=== PATIENT | female | born 1940 | race Caucasian/White ===

== ENCOUNTER 2020-08-30 12:47 | Inpatient (IN) | payer MEDICARE ==
[~2020-08-30] VITALS: Ht 160 cm; Wt 73.8 kg
[~2020-08-30 12:47] MED LIST: ALEN70TA66 PO; LEVO75TA5 PO; LOSA1TAB25 PO; OXYB5TAB10 PO; POTA20TA91; SIMV20TA19 PO
--- NOTE | 2020-08-30 12:58 | NUR ---
PT BIB EMS FOR GENERAL WEAKNESS AND COFFEE GROUND EMESIS THAT STARTED YESTERDAY. EMS REPORTS THAT PT ALSO HAD VERY FOUL SMELLING URINE ON SCENE. PT DENIES ABD PAIN BUT EMS DID CONFIRM THAT SHE DID HAVE DARK VOMIT AT HER HOUSE. PT RESTING IN [facility]. EKG COMPLETE. BLANKET PROVIDED.
[2020-08-30] MEDS ORDERED: ONDANSETRON 2MG/ML, 2ML ONE (13:25)
[2020-08-30] MEDS ORDERED: PANTOPRAZOLE 40 MG IV IVPush ONE (13:30)
[2020-08-30] MEDS ORDERED: SODIUM CHLORIDE 0.9% 1,000ML IVBOLUS ONE (13:30)
[2020-08-30] MEDS ORDERED: SODIUM CHLORIDE 0.9% 1,000 ML IV ONE (13:30)
[2020-08-30] MEDS ORDERED: SODIUM CHLORIDE FLUSH 10ML SYR IVF ONE (13:30)
[2020-08-30 13:40] LABS: BASOPHILS % (AUTO) 1 % (0-1); EOSINOPHILS % (AUTO) 0 % (1-7); LYMPHOCYTES % (AUTO) 8 % (22-44); MEAN CORPUSCULAR HEMOGLOBIN 30.7 pg (27.0-34.8); MEAN PLATELET VOLUME 8.7 fL (7.4-10.4); MONOCYTES % (AUTO) 7 % (2-9); NEUTROPHILS % (AUTO) 85 % (42-75); PLATELET COUNT 222 x10^3/uL (130-400); RED BLOOD COUNT 3.71 x10^6/uL (3.82-5.3); RED CELL DISTRIBUTION WIDTH 17.5 % (9.6-15.2)
[2020-08-30 13:47] LABS: MD NO
--- NOTE | 2020-08-30 13:47 | NUR ---
TASK RN: PIV PLACED FROM WHICH LABS INCLUDING 1 SET OF BLOOD CULTURES DRAWN STRAIGHT CATH UA OBTAINED-WALKED TO LAB
[2020-08-30 13:51] LABS: INTERNATIONAL NORMALIZED RATIO 1.02 (0.93-1.1); PROTHROMBIN TIME 10.8 Seconds (9.6-11.5)
[2020-08-30] MEDS ORDERED: PANTOPRAZOLE 40 MG IV ONE (13:52)
[2020-08-30 13:53] LABS: ALBUMIN 2.6 g/dL (3.4-5.0); ANION GAP 6 mmol/L (5-15); CALCIUM 9.9 mg/dL (8.5-10.1); CHLORIDE 109 mmol/L (98-107)
[2020-08-30 13:56] LABS: ALANINE AMINOTRANSFERASE 13 U/L (12-78); ALKALINE PHOSPHATASE 75 U/L (45-117); BILIRUBIN,TOTAL 0.6 mg/dL (0.2-1.0); CREATININE 0.93 mg/dL (0.55-1.02); TOTAL PROTEIN 6.4 g/dL (6.4-8.2)
[2020-08-30 14:02] LABS: MICROSCOPIC INDICATED
[2020-08-30] MEDS: PANTOPRAZOLE 80 MG in SODIUM CHLORIDE 0.9% 100 ML IV SCH ×4 (14:56→22:17)
[2020-08-30] MEDS ORDERED: SODIUM CHLORIDE FLUSH 10ML SYR IVF PRN (16:00)
[2020-08-30] MEDS ORDERED: hydrALAzine 20 MG/ML, 1ML IVPush PRN (17:00)
[2020-08-30] MEDS ORDERED: DOCUSATE 100 MG CAPSULE PO PRN (17:00)
[2020-08-30] MEDS ORDERED: ONDANSETRON 2MG/ML, 2ML IVPush PRN (17:00)
[2020-08-30] MEDS ORDERED: POLYETHYLENE GLYCOL 17 GM PACKET PO PRN (17:00)
[2020-08-30] MEDS ORDERED: BISACODYL 10 MG SUPP PR PRN (17:00)
[2020-08-30] MEDS ORDERED: ONDANSETRON ODT 4 MG PO PRN (17:00)
--- NOTE | 2020-08-30 17:05 | NUR ---
REPORT GIVEN TO HAYLIE RASMUSSEN FOR ROOM [id number]
[2020-08-30] MEDS: CEFTRIAXONE PMX 1GM/50ML 50 ML IV SCH (17:18)
[2020-08-30] MEDS ORDERED: CEFTRIAXONE PMX 1GM/50ML 50 ML ONE (17:18)
[2020-08-30 18:33] VITALS: BP 90/66
[2020-08-30] MEDS: NS + 20MEQ KCL 1,000 ML IV SCH (20:38)
[2020-08-30 20:59] VITALS: BP 90/66
[2020-08-31 01:02] VITALS: BP 107/66
[2020-08-31] MEDS: NS + 20MEQ KCL 1,000 ML IV SCH (04:21)
[2020-08-31 05:05] LABS: BASOPHILS % (AUTO) 1 % (0-1); EOSINOPHILS % (AUTO) 2 % (1-7); LYMPHOCYTES % (AUTO) 13 % (22-44); MEAN CORPUSCULAR HEMOGLOBIN 31.3 pg (27.0-34.8); MEAN PLATELET VOLUME 8.9 fL (7.4-10.4); MONOCYTES % (AUTO) 8 % (2-9); NEUTROPHILS % (AUTO) 77 % (42-75); PLATELET COUNT 167 x10^3/uL (130-400); RED BLOOD COUNT 2.84 x10^6/uL (3.82-5.3); RED CELL DISTRIBUTION WIDTH 17.6 % (9.6-15.2)
[2020-08-31 05:09] LABS: MD NO
[2020-08-31 05:15] LABS: ALANINE AMINOTRANSFERASE 6 U/L (12-78); ALBUMIN 2.1 g/dL (3.4-5.0); ANION GAP 3 mmol/L (5-15); CALCIUM 8.9 mg/dL (8.5-10.1); CHLORIDE 118 mmol/L (98-107); CREATININE 0.65 mg/dL (0.55-1.02)
[2020-08-31 05:17] LABS: ALKALINE PHOSPHATASE 52 U/L (45-117); BILIRUBIN,TOTAL 0.4 mg/dL (0.2-1.0); TOTAL PROTEIN 4.9 g/dL (6.4-8.2)
[2020-08-31 06:50] VITALS: BP 110/69
[2020-08-31] MEDS: PANTOPRAZOLE 80 MG in SODIUM CHLORIDE 0.9% 100 ML IV SCH (08:54)
[2020-08-31] MEDS ORDERED: PROPOFOL 10 MG/ML, 20ML ONE (10:52)
[2020-08-31] MEDS ORDERED: hydrALAzine 20 MG/ML, 1ML IV PRN (11:30)
[2020-08-31] MEDS ORDERED: OXYcodone 5 MG/5 ML ORAL.SOL UDC PO PRN (11:30)
[2020-08-31] MEDS ORDERED: ONDANSETRON 2MG/ML, 2ML IVPush PRN (11:30)
[2020-08-31] MEDS ORDERED: DIAZEPAM 5 MG/ML, 2ML IVPush PRN (11:30)
[2020-08-31] MEDS ORDERED: DIPHENHYDRAMINE 50 MG/ML, 1ML IVPush PRN (11:30)
[2020-08-31] MEDS ORDERED: FENTANYL PF 100 MCG/2ML IV PRN (11:30)
[2020-08-31] MEDS ORDERED: HYDROmorphone 1 MG/ML, 1ML INJ IVPush PRN (11:30)
[2020-08-31] MEDS ORDERED: EPHEDRINE 50 MG/ML, 1ML IVPush PRN (11:30)
[2020-08-31] MEDS ORDERED: ALBUTEROL SULFATE 2.5 MG/3 ML NPPB PRN (11:30)
[2020-08-31] MEDS ORDERED: MEPERIDINE/PF 25MG/0.5ML IVPush PRN (11:30)
[2020-08-31] MEDS ORDERED: PROMETHAZINE 12.5 MG SUPP PR PRN (11:30)
[2020-08-31] MEDS ORDERED: PROMETHAZINE 25 MG/ML, 1ML IVPush PRN (11:30)
[2020-08-31] MEDS ORDERED: MIDAZOLAM 1 MG/ML, 2ML IV PRN (11:30)
[2020-08-31] MEDS ORDERED: LABETALOL 5MG/ML, 20ML IV PRN (11:30)
[2020-08-31 11:51] VITALS: BP 110/68
[2020-08-31] MEDS ORDERED: LIDOCAINE 1%, 10ML ONE (12:25)
[2020-08-31] MEDS ORDERED: FENTANYL PF 100 MCG/2ML ONE (12:44)
[2020-08-31] MEDS ORDERED: MIDAZOLAM 1 MG/ML, 5ML ONE ×2 (12:44)
[2020-08-31] MEDS ORDERED: NALOXONE 1 MG/ML, 2ML ONE (12:45)
[2020-08-31] MEDS ORDERED: FLUMAZENIL 0.1 MG/1 ML, 5ML ONE (12:45)
[2020-08-31] MEDS ORDERED: VISIPAQUE 270 MG/ML, 50ML BOTTLE ONE (14:27)
[2020-08-31] MEDS: PANTOPRAZOLE 40 MG IV IVPush SCH (15:07)
[2020-08-31 15:08] VITALS: BP 90/53
[2020-08-31] MEDS: OXYBUTYNIN CHLORIDE 5 MG TABLET PO SCH (15:08)
[2020-08-31] MEDS: ACETAMINOPHEN 325 MG TABLET PO PRN ×2 (15:36→20:31)
[2020-08-31] MEDS: CEFTRIAXONE PMX 1GM/50ML 50 ML IV SCH (16:23)
[2020-08-31] MEDS: SUCRALFATE 1 GM/10 ML UDC PO SCH ×2 (16:56→20:31)
[2020-08-31] MEDS ORDERED: NS + 20MEQ KCL 1,000 ML IV SCH (17:00)
[2020-08-31 17:01] VITALS: BP 99/64
[2020-08-31 18:04] LABS: MICROSCOPIC INDICATED
[2020-08-31] MEDS ORDERED: SODIUM CHLORIDE 0.9%, 500ML IVBOLUS ONE (19:00)
[2020-08-31 20:28] VITALS: BP 98/62
[2020-08-31] MEDS: SIMVASTATIN 20 MG TABLET PO SCH (20:31)
[2020-09-01 03:11] VITALS: BP 90/53
[2020-09-01] MEDS: PANTOPRAZOLE 40 MG IV IVPush SCH ×2 (03:16→16:02)
[2020-09-01 05:31] LABS: BASOPHILS % (AUTO) 2 % (0-1); EOSINOPHILS % (AUTO) 4 % (1-7); LYMPHOCYTES % (AUTO) 20 % (22-44); MEAN CORPUSCULAR HEMOGLOBIN 31.2 pg (27.0-34.8); MEAN CORPUSCULAR HGB CONC 33.4 g/dL (32.4-35.8); MEAN PLATELET VOLUME 8.5 fL (7.4-10.4); MONOCYTES % (AUTO) 8 % (2-9); NEUTROPHILS % (AUTO) 66 % (42-75); PLATELET COUNT 151 x10^3/uL (130-400); RED BLOOD COUNT 2.34 x10^6/uL (3.82-5.3); RED CELL DISTRIBUTION WIDTH 18.2 % (9.6-15.2)
[2020-09-01 05:42] LABS: ANION GAP 3 mmol/L (5-15); CALCIUM 8.4 mg/dL (8.5-10.1); CHLORIDE 118 mmol/L (98-107)
[2020-09-01 05:43] LABS: CREATININE 0.53 mg/dL (0.55-1.02)
[2020-09-01] MEDS: SUCRALFATE 1 GM/10 ML UDC PO SCH ×4 (05:48→20:45)
[2020-09-01] MEDS: LEVOTHYROXINE 75 MCG TABLET PO SCH (05:48)
[2020-09-01 06:10] LABS: MD SCAN
[2020-09-01 07:23] VITALS: BP 105/67
[2020-09-01] MEDS: ACETAMINOPHEN 325 MG TABLET PO PRN ×2 (08:22→20:46)
[2020-09-01] MEDS: OXYBUTYNIN CHLORIDE 5 MG TABLET PO SCH ×3 (08:37→20:45)
[2020-09-01 13:53] VITALS: BP 97/59
[2020-09-01] MEDS ORDERED: ASPI81TA45 PO (16:51)
[2020-09-01] MEDS ORDERED: POTA10CA PO (16:51)
[2020-09-01] MEDS ORDERED: CALC-112 PO (16:51)
[2020-09-01] MEDS ORDERED: LOSA1TAB25 PO (16:51)
[2020-09-01] MEDS ORDERED: MULT-662 PO (16:53)
[2020-09-01] MEDS: CEFTRIAXONE PMX 1GM/50ML 50 ML IV SCH (17:29)
[2020-09-01 20:29] VITALS: BP 132/80
[2020-09-01] MEDS: SIMVASTATIN 20 MG TABLET PO SCH (20:45)
[2020-09-02 01:29] VITALS: BP 109/69
[2020-09-02] MEDS: LEVOTHYROXINE 75 MCG TABLET PO SCH (05:56)
[2020-09-02] MEDS: PANTOPRAZOLE 40MG TABLET PO SCH ×2 (05:56→18:19)
[2020-09-02] MEDS: OXYBUTYNIN CHLORIDE 5 MG TABLET PO SCH ×4 (05:57→21:46)
[2020-09-02] MEDS: SUCRALFATE 1 GM/10 ML UDC PO SCH ×4 (05:57→21:46)
[2020-09-02 06:08] LABS: BASOPHILS % (AUTO) 3 % (0-1); EOSINOPHILS % (AUTO) 5 % (1-7); LYMPHOCYTES % (AUTO) 26 % (22-44); MEAN CORPUSCULAR HGB CONC 33.3 g/dL (32.4-35.8); MEAN PLATELET VOLUME 8.7 fL (7.4-10.4); MONOCYTES % (AUTO) 8 % (2-9); NEUTROPHILS % (AUTO) 58 % (42-75); PLATELET COUNT 141 x10^3/uL (130-400); RED BLOOD COUNT 2.45 x10^6/uL (3.82-5.3); RED CELL DISTRIBUTION WIDTH 17.9 % (9.6-15.2)
[2020-09-02 06:27] LABS: MD NO
[2020-09-02 08:35] VITALS: BP 139/75
[2020-09-02] MEDS: CALCIUM/VITAMIN D3 250-125 TABLET PO SCH (09:50)
[2020-09-02] MEDS: MULTIVITAMINS WITH IRON TABLET PO SCH (09:51)
[2020-09-02 14:18] LABS: ANION GAP 5 mmol/L (5-15); CALCIUM 8.4 mg/dL (8.5-10.1); CHLORIDE 116 mmol/L (98-107)
[2020-09-02 15:25] VITALS: BP 105/68
[2020-09-02] MEDS ORDERED: MAGNESIUM SULFATE PMX 4GM/100M 100 ML IVPB ONE (16:15)
[2020-09-02] MEDS ORDERED: HEPARIN 5,000 UNITS/ML, 1ML IV ONE (16:30)
[2020-09-02] MEDS ORDERED: HEPARIN 5,000 UNITS/ML, 1ML IV PRN (16:30)
[2020-09-02] MEDS ORDERED: HEPARIN 25,000 UNITS/250ML PMX 250 ML IV PRN (16:30)
[2020-09-02 19:42] VITALS: BP 99/63
[2020-09-02] MEDS: SIMVASTATIN 20 MG TABLET PO SCH (21:46)
[2020-09-02] MEDS: K-PHOS NEUTRAL 250MG TAB PO SCH (21:46)
[2020-09-03 00:58] VITALS: BP 103/66
[2020-09-03 05:01] LABS: BASOPHILS % (AUTO) 1 % (0-1); EOSINOPHILS % (AUTO) 4 % (1-7); LYMPHOCYTES % (AUTO) 25 % (22-44); MEAN CORPUSCULAR HEMOGLOBIN 31.4 pg (27.0-34.8); MEAN CORPUSCULAR HGB CONC 34.1 g/dL (32.4-35.8); MEAN PLATELET VOLUME 8.4 fL (7.4-10.4); MONOCYTES % (AUTO) 8 % (2-9); NEUTROPHILS % (AUTO) 63 % (42-75); PLATELET COUNT 160 x10^3/uL (130-400); RED BLOOD COUNT 2.53 x10^6/uL (3.82-5.3); RED CELL DISTRIBUTION WIDTH 17.6 % (9.6-15.2)
[2020-09-03 05:09] LABS: MD NO
[2020-09-03 05:24] LABS: ANION GAP 5 mmol/L (5-15); CALCIUM 8.4 mg/dL (8.5-10.1); CHLORIDE 113 mmol/L (98-107); CREATININE 0.68 mg/dL (0.55-1.02)
[2020-09-03] MEDS: OXYBUTYNIN CHLORIDE 5 MG TABLET PO SCH ×4 (05:28→23:15)
[2020-09-03] MEDS: PANTOPRAZOLE 40MG TABLET PO SCH ×2 (05:28→17:24)
[2020-09-03] MEDS: LEVOTHYROXINE 75 MCG TABLET PO SCH (05:28)
[2020-09-03 07:10] VITALS: BP 116/78
[2020-09-03] MEDS: SUCRALFATE 1 GM/10 ML UDC PO SCH ×4 (10:39→23:14)
[2020-09-03] MEDS: MULTIVITAMINS WITH IRON TABLET PO SCH (10:39)
[2020-09-03] MEDS: CALCIUM/VITAMIN D3 250-125 TABLET PO SCH (10:40)
[2020-09-03] MEDS: K-PHOS NEUTRAL 250MG TAB PO SCH ×2 (10:40→23:16)
[2020-09-03] MEDS: ACETAMINOPHEN 325 MG TABLET PO PRN (12:40)
[2020-09-03 14:30] VITALS: BP 115/70
[2020-09-03] MEDS ORDERED: HEPARIN 5,000 UNITS/ML, 1ML IV PRN (15:16)
[2020-09-03] MEDS ORDERED: HEPARIN 25,000 UNITS/250ML PMX 250 ML IV PRN (15:30)
[2020-09-03] MEDS: APIXABAN 5 MG TABLET PO SCH ×2 (17:25→23:14)
[2020-09-03 19:28] VITALS: BP 100/66
[2020-09-03] MEDS ORDERED: APIXABAN 5 MG TABLET PO SCH (21:00)
[2020-09-03] MEDS: SIMVASTATIN 20 MG TABLET PO SCH (23:15)
[2020-09-04 01:45] VITALS: BP 126/82
[2020-09-04] MEDS: LEVOTHYROXINE 75 MCG TABLET PO SCH (05:19)
[2020-09-04] MEDS: PANTOPRAZOLE 40MG TABLET PO SCH ×2 (05:19→21:33)
[2020-09-04] MEDS: OXYBUTYNIN CHLORIDE 5 MG TABLET PO SCH ×4 (05:19→21:33)
[2020-09-04 06:22] LABS: BASOPHILS % (AUTO) 1 % (0-1); EOSINOPHILS % (AUTO) 4 % (1-7); LYMPHOCYTES % (AUTO) 24 % (22-44); MEAN CORPUSCULAR HEMOGLOBIN 32.1 pg (27.0-34.8); MEAN CORPUSCULAR HGB CONC 34.2 g/dL (32.4-35.8); MEAN PLATELET VOLUME 8.6 fL (7.4-10.4); MONOCYTES % (AUTO) 11 % (2-9); NEUTROPHILS % (AUTO) 59 % (42-75); PLATELET COUNT 150 x10^3/uL (130-400); RED BLOOD COUNT 2.28 x10^6/uL (3.82-5.3); RED CELL DISTRIBUTION WIDTH 17.6 % (9.6-15.2)
[2020-09-04 06:25] LABS: MD NO
[2020-09-04 06:31] LABS: ANION GAP 4 mmol/L (5-15); CALCIUM 8.2 mg/dL (8.5-10.1); CHLORIDE 115 mmol/L (98-107); CREATININE 0.58 mg/dL (0.55-1.02)
[2020-09-04 07:25] VITALS: BP 115/74
[2020-09-04] MEDS ORDERED: MAGNESIUM SULFATE PMX 4GM/100M 100 ML IVPB ONE (08:00)
[2020-09-04] MEDS: SUCRALFATE 1 GM/10 ML UDC PO SCH ×4 (08:04→21:33)
[2020-09-04] MEDS: MULTIVITAMINS WITH IRON TABLET PO SCH (09:31)
[2020-09-04] MEDS: CALCIUM/VITAMIN D3 250-125 TABLET PO SCH (09:31)
[2020-09-04] MEDS: K-PHOS NEUTRAL 250MG TAB PO SCH ×2 (09:31→21:33)
[2020-09-04] MEDS: APIXABAN 5 MG TABLET PO SCH ×2 (09:31→21:32)
[2020-09-04 14:20] VITALS: BP 101/61
[2020-09-04 21:28] VITALS: BP 111/77
[2020-09-04] MEDS: SIMVASTATIN 20 MG TABLET PO SCH (21:33)
[2020-09-05] VITALS (9 sets, daily range): BP systolic 95–122; BP diastolic 59–78
[2020-09-05 06:11] LABS: MEAN CORPUSCULAR HEMOGLOBIN 31.7 pg (27.0-34.8); MEAN PLATELET VOLUME 8.3 fL (7.4-10.4); PLATELET COUNT 156 x10^3/uL (130-400); RED BLOOD COUNT 2.24 x10^6/uL (3.82-5.3)
[2020-09-05] MEDS: OXYBUTYNIN CHLORIDE 5 MG TABLET PO SCH ×4 (06:19→21:53)
[2020-09-05] MEDS: LEVOTHYROXINE 75 MCG TABLET PO SCH (06:19)
[2020-09-05] MEDS: PANTOPRAZOLE 40MG TABLET PO SCH ×2 (06:19→18:14)
[2020-09-05 06:24] LABS: CALCIUM 8.1 mg/dL (8.5-10.1); CHLORIDE 112 mmol/L (98-107)
[2020-09-05 06:27] LABS: ANION GAP 3 mmol/L (5-15); CREATININE 0.55 mg/dL (0.55-1.02)
[2020-09-05 06:45] LABS: MD YES
[2020-09-05 06:46] LABS: LYMPH#(MANUAL) 0.95 x10^3/uL (1-3.4); LYMPHS% (MANUAL) 19 % (22-44)
[2020-09-05 06:47] LABS: ANISOCYTOSIS 1+; BANDS%(MANUAL) 4 % (0-7); EOS% (MANUAL) 2 % (1-7); MONOS#(MANUAL) 0.35 x10^3/uL (0.3-2.7); MONOS% (MANUAL) 7 % (2-9); POLYCHROMASIA 1+; SEGS% (MANUAL) 68 % (42-75)
[2020-09-05 06:48] LABS: <PLATELET ESTIMATE> ADEQUATE; <PLT MORPHOLOGY> NORMAL PLT MORPH
[2020-09-05] MEDS: SUCRALFATE 1 GM/10 ML UDC PO SCH ×4 (08:14→21:53)
[2020-09-05] MEDS: CALCIUM/VITAMIN D3 250-125 TABLET PO SCH (08:14)
[2020-09-05] MEDS: K-PHOS NEUTRAL 250MG TAB PO SCH ×2 (08:14→21:53)
[2020-09-05] MEDS: APIXABAN 5 MG TABLET PO SCH ×2 (08:14→21:54)
[2020-09-05] MEDS ORDERED: POTASSIUM CHLORIDE 20 MEQ TAB.ER.PRT PO ONE (09:00)
[2020-09-05] MEDS: ACETAMINOPHEN 325 MG TABLET PO PRN (10:35)
[2020-09-05] MEDS: MULTIVITAMINS WITH IRON TABLET PO SCH (10:36)
[2020-09-05] MEDS: SIMVASTATIN 20 MG TABLET PO SCH (21:54)
[2020-09-06 00:34] VITALS: BP 121/74
[2020-09-06 05:59] LABS: BASOPHILS % (AUTO) 1 % (0-1); EOSINOPHILS % (AUTO) 5 % (1-7); LYMPHOCYTES % (AUTO) 20 % (22-44); MEAN CORPUSCULAR HEMOGLOBIN 30.8 pg (27.0-34.8); MEAN CORPUSCULAR HGB CONC 33.8 g/dL (32.4-35.8); MEAN PLATELET VOLUME 8.5 fL (7.4-10.4); MONOCYTES % (AUTO) 9 % (2-9); NEUTROPHILS % (AUTO) 64 % (42-75); PLATELET COUNT 172 x10^3/uL (130-400); RED BLOOD COUNT 2.73 x10^6/uL (3.82-5.3); RED CELL DISTRIBUTION WIDTH 19.7 % (9.6-15.2)
[2020-09-06 06:04] LABS: MD NO
[2020-09-06 06:05] LABS: CHLORIDE 115 mmol/L (98-107)
[2020-09-06 06:06] LABS: ANION GAP 5 mmol/L (5-15); CALCIUM 8.8 mg/dL (8.5-10.1); CREATININE 0.64 mg/dL (0.55-1.02)
[2020-09-06] MEDS: OXYBUTYNIN CHLORIDE 5 MG TABLET PO SCH ×4 (06:13→20:55)
[2020-09-06] MEDS: LEVOTHYROXINE 75 MCG TABLET PO SCH (06:13)
[2020-09-06] MEDS: PANTOPRAZOLE 40MG TABLET PO SCH ×2 (06:13→16:40)
[2020-09-06] MEDS: SUCRALFATE 1 GM/10 ML UDC PO SCH ×4 (07:00→20:54)
[2020-09-06] MEDS: ALENDRONATE 70 MG TABLET PO SCH ×2 (07:00→10:48)
[2020-09-06 08:00] VITALS: BP 129/71
[2020-09-06] MEDS: MULTIVITAMINS WITH IRON TABLET PO SCH (10:16)
[2020-09-06] MEDS: CALCIUM/VITAMIN D3 250-125 TABLET PO SCH (10:16)
[2020-09-06] MEDS: APIXABAN 5 MG TABLET PO SCH ×2 (10:17→20:55)
[2020-09-06] MEDS: K-PHOS NEUTRAL 250MG TAB PO SCH ×2 (10:17→20:55)
[2020-09-06] MEDS: ACETAMINOPHEN 325 MG TABLET PO PRN (10:50)
[2020-09-06] MEDS ORDERED: METHOCARBAMOL 500 MG TABLET PO PRN (11:00)
[2020-09-06 14:36] VITALS: BP 93/50
[2020-09-06 16:00] VITALS: BP 118/67
[2020-09-06 20:49] VITALS: BP 102/59
[2020-09-06] MEDS: SIMVASTATIN 20 MG TABLET PO SCH (20:55)
[2020-09-07 02:31] VITALS: BP 118/67
[2020-09-07] MEDS: PANTOPRAZOLE 40MG TABLET PO SCH (06:12)
[2020-09-07] MEDS: OXYBUTYNIN CHLORIDE 5 MG TABLET PO SCH ×2 (06:12→09:50)
[2020-09-07] MEDS: SUCRALFATE 1 GM/10 ML UDC PO SCH ×3 (06:12→16:00)
[2020-09-07] MEDS: LEVOTHYROXINE 75 MCG TABLET PO SCH (06:12)
[2020-09-07] MEDS: CALCIUM/VITAMIN D3 250-125 TABLET PO SCH (09:50)
[2020-09-07] MEDS: MULTIVITAMINS WITH IRON TABLET PO SCH (09:50)
[2020-09-07] MEDS: K-PHOS NEUTRAL 250MG TAB PO SCH (09:50)
[2020-09-07] MEDS: APIXABAN 5 MG TABLET PO SCH (09:50)
[2020-09-07 09:52] VITALS: BP 127/80
[2020-09-07 13:22] VITALS: BP 94/63
[2020-09-07] MEDS ORDERED: APIX5TAB PO ×2 (13:56)
[2020-09-07] MEDS ORDERED: PHOS250T PO (13:56)
[2020-09-07] MEDS ORDERED: SUCR1ORA5 PO (13:56)
[2020-09-07] MEDS ORDERED: METH500T7 PO (13:56)
[2020-09-07] MEDS ORDERED: PANT40TA6 PO (13:56)
[2020-09-07] MEDS ORDERED: ACET325T26 PO (13:56)
[2020-09-10] MEDS ORDERED: APIXABAN 5 MG TABLET PO SCH (21:00)
== END 2020-09-07 18:20 | DRG 377 ==
LOC: ED 14:02 → EDIP 16:44 → 5SO 18:02 → 3WST 09-04 16:34
PROVIDERS: ADMIT Family Medicine; ATTEND Family Medicine
PROC: 0T9B70Z Drainage of Bladder with Drainage Device, Via Natural or Artificial Opening (ICD-10-PCS; 2020-08-31)
PROC: 06H03DZ Insertion of Intraluminal Device into Inferior Vena Cava, Percutaneous Approach (ICD-10-PCS; 2020-08-31)
PROC: B549ZZA Ultrasonography of Inferior Vena Cava, Guidance (ICD-10-PCS; 2020-08-31)
PROC: B5191ZA Fluoroscopy of Inferior Vena Cava using Low Osmolar Contrast, Guidance (ICD-10-PCS; 2020-08-31)
PROC: 0DB58ZX Excision of Esophagus, Via Natural or Artificial Opening Endoscopic, Diagnostic (ICD-10-PCS; principal; 2020-08-31 11:30)
PROC: 30233N1 Transfusion of Nonautologous Red Blood Cells into Peripheral Vein, Percutaneous Approach (ICD-10-PCS; 2020-09-05)
DX: K92.2 Gastrointestinal hemorrhage, unspecified (principal); E43 Unspecified severe protein-calorie malnutrition; N39.0 Urinary tract infection, site not specified; I69.351 Hemiplegia and hemiparesis following cerebral infarction affecting right dominant side; I82.411 Acute embolism and thrombosis of right femoral vein; Z20.828 Contact with and (suspected) exposure to other viral communicable diseases; D64.9 Anemia, unspecified; E03.9 Hypothyroidism, unspecified; E78.5 Hyperlipidemia, unspecified; E83.39 Other disorders of phosphorus metabolism; E83.42 Hypomagnesemia; E87.6 Hypokalemia; I10 Essential (primary) hypertension; I44.7 Left bundle-branch block, unspecified; K21.00 Gastro-esophageal reflux disease with esophagitis, without bleeding; I95.9 Hypotension, unspecified; R00.0 Tachycardia, unspecified; K44.9 Diaphragmatic hernia without obstruction or gangrene; M81.0 Age-related osteoporosis without current pathological fracture; R32 Unspecified urinary incontinence; M79.89 Other specified soft tissue disorders; Z66 Do not resuscitate; Z68.28 Body mass index [BMI] 28.0-28.9, adult; Z79.82 Long term (current) use of aspirin; Z80.1 Family history of malignant neoplasm of trachea, bronchus and lung
CPT/HCPCS: 36415; 37191; 76937; 80048; 80053; 81001; 83690; 83735; 84100; 85014; 85018; 85025; 85520; 85610; 85730; 86850; 86900; 86923; 87086; 87635; 88305; 93005; 99156; 99157; 99285; C1880; G0378; J0696; J1644; J2250; J2704; J3010; J3480; Q9966; C1769; C9113; J2310; J3475; J7030; J7040; P9016